=== PATIENT | male | born 1955 | race Caucasian/White ===

== ENCOUNTER → 2022-07-15 12:25 | Outpatient (BNVA) | payer MEDICARE, MEDICAID, SELFPAY | PROVIDERS: PCP Internal Medicine; Referring Provider Nurse Practitioner Family; Visit Provider Internal Medicine | DX: I95.9 Hypotension, unspecified (principal); E34.9 Endocrine disorder, unspecified; E07.9 Disorder of thyroid, unspecified; Z87.440 Personal history of urinary (tract) infections; E16.2 Hypoglycemia, unspecified | CPT/HCPCS: 84439; 84443; 84480; 99204 ==

== ENCOUNTER → 2022-07-23 10:04 | Day surgery (SDC) | payer MEDICARE, MEDICAID, SELFPAY ==
[2022-07-23] MEDS: cosyntropin 0.25 mg SDV IVP (10:31)
[2022-07-23 10:34] VITALS: BP 117/73; PULSE 69; RESP 18; TEMP 36.6; O2SAT 99
[2022-07-23 11:11] LABS: Cosyntropin Baseline 8.23 mcg/dL
[2022-07-23 11:44] LABS: Cosyntropin 30 Minute 20.94 mcg/dL
[2022-07-23 12:34] LABS: Cosyntropin 1 Hour 22.83 mcg/dL
== END ==
PROVIDERS: PCP Internal Medicine; Visit Provider Internal Medicine
DX: I95.9 Hypotension, unspecified (principal); E34.9 Endocrine disorder, unspecified; M62.89 Other specified disorders of muscle; H93.19 Tinnitus, unspecified ear; E16.2 Hypoglycemia, unspecified; Z79.899 Other long term (current) drug therapy
CPT/HCPCS: 36415; 82533; 96374; 99214; J0834

== ENCOUNTER 2022-07-25 09:30 | Outpatient (CLI) | payer MEDICARE, MEDICAID, SELFPAY ==
--- NOTE | 2022-07-25 10:15 | US_ITS ---
WS: [id number] RIGHT UPPER QUADRANT ULTRASOUND HISTORY: hypoglycemia COMPARISON: None available. Liver: 13.9 cm in length. Normal size liver and echogenicity. No bile duct dilatation or mass. Portal Vein: Normal hepatopetal flow with monophasic waveform. Gallbladder: Normally distended gallbladder with no stones or wall thickening. CBD: 0.2 cm Pancreas: Normal size and echogenicity. Limited visualization of the pancreatic tail. Right kidney: 10.7 cm in length. Normal size and echogenicity. No hydronephrosis or mass. Aorta and IVC: Unremarkable abdominal aorta and IVC. No ascites. US/US pancreas [id number] IMPRESSION: Normal RIGHT upper quadrant ultrasound. Pancreas unremarkable. Very distal pancreatic tail is poorly visualized.
== END 2022-07-25 09:31 | disposition home or self-care (01) ==
PROVIDERS: PCP Internal Medicine; Visit Provider Internal Medicine
DX: E16.2 Hypoglycemia, unspecified (principal)
CPT/HCPCS: 76705

== ENCOUNTER 2022-08-11 14:22 | Outpatient (CLI) | payer MEDICARE, MEDICAID, SELFPAY ==
[2022-08-11] MEDS: iohexol 350 mg/mL 500 mL Btl (per mL) PO (15:20)
--- NOTE | 2022-08-11 16:00 | CT_ITS ---
WS: [id number] CT ABDOMEN AND PELVIS WITH CONTRAST HISTORY: E16.2 - Hypoglycemia, unspecified TECHNIQUE: Imaging performed of the abdomen and pelvis with IV contrast. Single phase imaging of the abdomen. Coronal and sagittal reformats are submitted. All CT scans at [facility] use at [address] one of these dose optimization techniques: automated exposure control; mA and/or kV adjustment per patient size (includes targeted exams where dose is matched to clinical indication); or iterative re construction. IV CONTRAST: Omnipaque 350; 100 mL IV. Oral contrast: Yes. DLP: 472.50 mGy.cm COMPARISON: Ultrasound pancreas 07/25/2022 Lower thorax: Mild dependent changes at the lung bases. Heart is normal size. No hiatal hernia. Liver/biliary system: Normal size with no intrahepatic dilatation. Gallbladder: Normal. No gallstones or wall thickening. No pericholecystic fluid. Pancreas: Normal size pancreas and pancreatic duct. No adjacent inflammation. No hypervascular masses or abnormal enhancement. Spleen: Normal size spleen. No mass or infarct. Adrenal glands: Normal. Right kidney: Normal. Left kidney: Normal. Aorta: Mild atherosclerosis with no aneurysm. Lymphadenopathy: None. Free fluid: None. GI tract: Normal stomach. Abnormal small bowel. Proximal small bowel beginning at the first portion o f the duodenum to the proximal jejunum demonstrates marked wall thickening measuring up to 1.3 cm. Th e lumen is narrowed and there is loss of the normal architectural pattern of the small bowel. There i s no differentiation between the submucosa and the mucosa. The mid to distal jejunum and ileum are mo re normal. No intussusception. There is a very small amount of air within the wall of the small bowel involving the most distal component which can be seen with benign and more aggressive processes, als o entrapped air within the lumen should be considered. Does not appear to be an obstruction. The appendix is normal. A few scattered diverticula in the distal colon. Abdominal wall: Unremarkable abdominal wall. No hernia. Pelvis: Well-distended urinary bladder. Focal outpouching from the posterior urinary bladder is most consistent with a bladder diverticulum measuring 2.1 x 1.7 cm. Mild prostate gland enlargement. Bones: Unremarkable. CT/CT abdomen pelvis w con* [id number] IMPRESSION: 1. Long segment proximal small bowel (duodenum and proximal jejunum) marked wa ll thickening which is very abnormal. There is not a lot of adjacent inflammati on. No free air or obstruction. There is a small amount of air within the wall of the distal small bowel thickening. Differential for this air is extensive an d may be of benign etiologies or ischemic. There is no obstruction and no adjac ent inflammation and no free air to suggest a perforation. 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 Additional possibilities include sterile use, connective tissue disorders a nd vasculitis. 2. No free air or free fluid. 3. Posterior bladder diverticulum.
[2022-08-11 16:07] LABS: Blood Urea Nitrogen 12 mg/dL (8-23); Glomerular Filtration Rate 112.8 mL/min (90-130)
[2022-08-11] MEDS: iohexol 350 mg/mL 500 mL Btl (per mL) IV (16:17)
== END 2022-08-11 14:23 | disposition home or self-care (01) ==
LOC: RAD 14:22
PROVIDERS: Radiology Neuroradiology; PCP Internal Medicine; Visit Provider Internal Medicine
DX: E16.2 Hypoglycemia, unspecified (principal)
CPT/HCPCS: 74177; 82565; 84520; Q9967

== ENCOUNTER → 2022-08-24 09:30 | Outpatient (BNVA) | payer MEDICARE, SELFPAY | PROVIDERS: PCP Internal Medicine; Visit Provider Otolaryngology | DX: H93.19 Tinnitus, unspecified ear (principal); I95.9 Hypotension, unspecified | CPT/HCPCS: 99203 ==

== ENCOUNTER → 2022-10-20 14:45 | Outpatient (BNVA) | payer MEDICARE, SELFPAY | PROVIDERS: PCP Internal Medicine; Visit Provider Internal Medicine | DX: I95.9 Hypotension, unspecified (principal); H93.19 Tinnitus, unspecified ear; E16.2 Hypoglycemia, unspecified; K63.9 Disease of intestine, unspecified; Z79.84 Long term (current) use of oral hypoglycemic drugs | CPT/HCPCS: 36415; 82784; 83516; 99214 ==